=== PATIENT | female | born 1990 | race Caucasian/White ===

== ENCOUNTER 2017-11-12 07:52 | Emergency (ER) | payer OTHER ==
[~2017-11-12] VITALS: Ht 160 cm; Wt 103.1 kg
[~2017-11-12 07:52] MED LIST: FLUO20CA35 PO; LAMO100T16 PO; RISP1TAB68 PO
[2017-11-12 07:55] VITALS: TEMP 36.8; Ht 160 cm; Wt 103.1 kg
[2017-11-12] MEDS ORDERED: IBUPROFEN 600 MG TAB PO STA (08:11)
--- NOTE | 2017-11-12 08:15 | EMERGENCY ROOM VISIT NOTE ---
History First contact with patient: 08:02 Chief Complaint: RIB PAIN Stated Complaint: STABBING PAIN IN RIB History of Present Illness The patient is a 27 year old female who presents to the Emergency Room with complaints of right rib pain times "a few days" and cough 1 month. The patient states she has been experiencing right lateral rib pain which began a few days ago after experiencing a cough for several weeks. She states the pain has been getting worse, and is not worse with movement or deep breathing. She states she has had a cough, occasionally productive, congestion, runny nose, sore throat, and dyspnea. She denies any fever or chest pain. She denies any abdominal pain, nausea, vomiting, diarrhea, constipation. She denies hemoptysis. She states she has not seen a PCP regarding her symptoms, as she recently got insurance. She has taken no medications for the pain, but has been taking DayQuil occasionally when her symptoms are severe. Review of Systems A complete 10 point review of systems was reviewed with the patient with pertinent positives and negatives as per history of present illness. All else were negative. Past Medical/Surgical History Medical Problems: (1) Irritable bowel syndrome (IBS) Irritable Bowel Syndrome Social History Smoking Status: Current Every Day Smoker Smokeless Tobacco Use: No Alcohol Use: occasionally Drug Use: none Marital Status: single Occupation Status: unemployed Current/Historical Medications Scheduled PRN Albuterol Hfa (Ventolin Hfa), 2 PUFFS INH QID PRN for Cough Benzonatate (Tessalon Perles), 200 MG PO TID PRN for Cough Physical Exam Vital Signs Date Time Temp Pulse Resp B/P (MAP) Pulse Ox O2 Delivery O2 Flow Rate FiO2 11/12/17 09:45 88 18 155/86 96 11/12/17 07:55 36.8 100 18 175/102 97 Room Air Physical Exam VITALS: Vitals are noted on the nurse's note and reviewed by myself. Vital signs stable. GENERAL: This is a 27-year-old obese white female, in no acute distress, nondiaphoretic, well-developed well-nourished. SKIN: The skin was without rashes, erythema, edema, or bruising. There is no tenting of the skin. Capillary reflex less than 2 seconds. HEAD: Normocephalic atraumatic. EARS: External auditory canals clear, tympanic membranes pearly yoo without erythema or effusion bilaterally. EYES: Pupils equal round and reactive to light and accommodation. Conjunctivae without injection, sclerae without icterus. Extraocular movements intact. NOSE: Patent, turbinates without inflammation or discharge. No sinus tenderness. MOUTH: Mucous membranes moist. Tonsils are not enlarged. Pharynx without erythema or exudate. Uvula midline. Airway patent. Tongue does not deviate. NECK: Supple without nuchal rigidity. No lymphadenopathy. No thyromegaly. Cervical spine is nontender. No JVD. HEART: Regular rate and rhythm without murmurs gallops or rubs. LUNGS: Clear to auscultation bilaterally without wheezes, rales or rhonchi. No dullness to percussion. No retractions or accessory muscle use. ABDOMEN: Positive bowel sounds x 4. Normal tympanic percussion. Soft, nontender, without masses or organomegaly. Felix sign negative. No guarding or rebound tenderness. MUSCULOSKELETAL: Tenderness noted of the right lateral ribs on palpation. No muscle atrophy, erythema, or edema noted. Full range of motion without joint tenderness in all extremities. No other tenderness to palpation. Normal gait. Strength 5/5 throughout. NEURO: Patient was alert and oriented to person place and time. Normal sensation to light and sharp touch. Deep tendon reflexes 2+ throughout. No focal neurological deficits. Medical Decision & Procedures ER Provider Diagnostic Interpretation: R RIBS UNILATERAL WITH PA CHEST HISTORY: 27 years-old Female right rib pain, cough acute right-sided rib pain and cough. COMPARISON: None available TECHNIQUE: PA view the chest with 4 views of the right ribs FINDINGS: Cardiomediastinal and hilar silhouettes are within normal limits. Lungs are mildly hypoinflated without pneumothorax, pleural effusion, focal airspace consolidation or overt pulmonary edema. Bones appear intact. No acute displaced rib fracture identified. Minimal cortical angulation involves the posterior lateral aspect of the right seventh rib as seen on image 4. IMPRESSION: 1. No acute process of the chest. 2. No acute displaced rib fracture or pneumothorax. 3. Minimal cortical angulation involving the posterior lateral right seventh rib may reflect a subtle acute nondisplaced fracture. Correlate with point tenderness. The above report was generated using voice recognition software. It may contain grammatical, syntax or spelling errors. Electronically signed by: Quintin Srivastava M.D. 11/12/2017 8:44 AM Dictated Date/Time: 11/12/2017 8:41 AM Medications Administered Medications (Trade) Dose Ordered Sig/Gabbi Route Start Time Stop Time Status Last Admin Dose Admin Ibuprofen (Motrin Tab) 600 mg NOW STAT PO 11/12/17 08:11 11/12/17 08:12 DC 11/12/17 08:44 600 MG ED Course The patient was seen and evaluated as above. She was given 600 mg ibuprofen by mouth. X-ray of the right ribs with PA chest was ordered and reviewed by myself and radiologist. The patient was reassessed. She is feeling somewhat better since the ibuprofen. Results with her at bedside, and proper course of treatment. The patient does not have a PCP, she recently obtained medical insurance. I asked if she would like the pillowcase sewer to speak with her regarding PCPs in the area locally. I spoke with Kristie, who did speak with the patient. The patient was in agreement with the treatment plan. Discharge instructions reviewed, and patient was discharged home in good condition. Medical Decision This is a 27-year-old female patient presents to the emergency department complaining of right lateral rib pain. The patient does report approximately 1 month long history of coughing, with the pain getting worse. She denies any significant injury, but states the pain is worse with movement or breathing. She denies any previous rib fractures. X-ray was negative for obvious acute displaced fracture, but did show question of nondisplaced rib fracture of the right seventh rib. The patient is tender throughout the entire right lateral chest wall. She will be treated symptomatically for the cough and with high dose , scheduled NSAIDs for the rib pain. She was encouraged to follow up outpatient with her PCP. Discharge instructions reviewed, and the patient was discharged home in good condition. Etiologies such as rib fracture or contusion, costochondritis, influenza, pneumonia, bronchitis, cardiac ischemia, aortic dissection, pulmonary embolism, pneumothorax, musculoskeletal, infections, gastrointestinal, malignancy, as well as others were entertained. Medication Reconcilliation Current Medication List: was personally reviewed by me Blood Pressure Screening Patient's blood pressure: Normal blood pressure Impression Primary Impression: Tracheobronchitis Additional Impression: Right-sided chest wall pain Departure Information Dispostion Home / Self-Care Condition GOOD Prescriptions Benzonatate (Tessalon Perles) 200 Mg Cap 200 MG PO TID Y for Cough, #30 CAP Prov: Robyn Pedraza PA-C 11/12/17 Albuterol Hfa (VENTOLIN HFA) 200 Puffs/58933 Mcg Aers 2 PUFFS INH QID Y for Cough, #1 INHALER Prov: Robyn Pedraza PA-C 11/12/17 Referrals No Doctor, Assigned (PCP) Patient Instructions Chest Cold (Bronchitis) - [facility], ED Contusion Vs Minor Fx Rib, My [facility] Additional Instructions You were seen and evaluated in the emergency department today for cough with right rib pain. I suspect the cough is related to a tracheobronchitis, which can cause symptoms for 4-6 weeks. This is likely viral in nature. As discussed, CXR did show a possible right 7th rib fracture. This was not confirmatory, however, the rib was not displaced. The treatment for this is pain management. You were given cough medication to help with the coughing and hopefully minimize discomfort. You have been provided with an albuterol inhaler to use for wheezing or difficulty breathing. Use this inhaler 1-2 puffs every 4-6 hours as needed. If you find that your symptoms are not improving with the use of the inhaler, or if you find that you need to use the inhaler longer than 1 week, return to the ED or follow-up with your PCP. You have been given benzonatate (Tessalon Pearles) to be used for coughing. These should be taken 1 capsule up to 3 times per day as needed for coughing. Do not take this medication more than prescribed. You may use this medication in addition to OTC cough medications. Drink warm tea with honey and lemon, as this will also help to soothe the throat. Gargle with salt water frequently. As discussed, you should take OTC Mucinex and/or Sudafed for your symptoms. Please do not exceed the recommended daily dosages. Ibuprofen(Motrin, Advil) may be used for fever or pain. Use 600mg every six hours as needed. Take with food. Avoid using more than 2400mg in a 24 hour period. Do not use 2400mg per day for more than three consecutive days without physician direction. Prolonged inappropriate use can lead to stomach upset or ulcers. This medication will help with the swelling in your sinuses as well as with discomfort in your ribs. Take this medication every 6 hours for the first 2 -3 days for increased pain relief. (AND/OR) Acetaminophen(Tylenol) may be used for fever or pain. Use 1000mg every six hours as needed. Avoid using more than 3000mg in a 24 hour period. For congestion, you may use Flonase OTC. You may want to consider zinc, echinacea, and vitamin C to help boost your immunity. Please get plenty of rest and drink plenty of fluids. Please return or follow-up with your PCP in 1 week if you are not experiencing any improvement in your symptoms. Return to the emergency department for coughing up blood, difficulty breathing, chest pain, worsening symptoms, or for other concerns. Problem Qualifiers
--- NOTE | 2017-11-12 08:45 | DIAGNOSTIC IMAGING REPORT ---
R RIBS UNILATERAL WITH PA CHEST HISTORY: 27 years-old Female right rib pain, cough acute right-sided rib pain and cough. COMPARISON: None available TECHNIQUE: PA view the chest with 4 views of the right ribs FINDINGS: Cardiomediastinal and hilar silhouettes are within normal limits. Lungs are mildly hypoinflated without pneumothorax, pleural effusion, focal airspace consolidation or overt pulmonary edema. Bones appear intact. No acute displaced rib fracture identified. Minimal cortical angulation involves the posterior lateral aspect of the right seventh rib as seen on image 4. IMPRESSION: 1. No acute process of the chest. 2. No acute displaced rib fracture or pneumothorax. 3. Minimal cortical angulation involving the posterior lateral right seventh rib may reflect a subtle acute nondisplaced fracture. Correlate with point tenderness. The above report was generated using voice recognition software. It may contain grammatical, syntax or spelling errors. Electronically signed by: Quintin Srivastava M.D. 11/12/2017 8:44 AM Dictated Date/Time: 11/12/2017 8:41 AM
[2017-11-12] MEDS ORDERED: BENZ1CAP90 PO (09:20)
[2017-11-12] MEDS ORDERED: VNTHFA/IN INH (09:20)
[2017-11-12 09:45] VITALS: BP 155/86; PULSE 88; O2SAT 96
== END 2017-11-12 09:45 | disposition home or self-care (01) ==
LOC: C.EDB 07:53 → C.EDA 09:45
DX: J40 Bronchitis, not specified as acute or chronic (principal); R07.89 Other chest pain; F17.200 Nicotine dependence, unspecified, uncomplicated